=== PATIENT | male | born 1965 | race Caucasian/White ===

== ENCOUNTER 2017-10-07 07:23 | Outpatient (CLI) | payer BC ==
[2017-10-07 14:05] LABS: BASOPHILS % (AUTO) 0.7 %; EOSINOPHILS # (AUTO) 0.1 10^3/uL (0.0-0.7); EOSINOPHILS % (AUTO) 3.3 %; HGB - HEMOGLOBIN 14.8 g/dL (14.0-18.0); LYMPHOCYTES # (AUTO) 1.3 10^3/uL (1.5-3.5); LYMPHOCYTES % (AUTO) 33.6 %; MEAN CORPUSCULAR HEMOGLOBIN 31.3 pg (27.0-31.0); MEAN CORPUSCULAR HGB CONC 34.5 g/dL (32.0-36.0); MEAN CORPUSCULAR VOLUME 90.6 fL (80.0-94.0); MEAN PLATELET VOLUME 8.6 fL (7.4-11.4); MONOCYTES # (AUTO) 0.4 10^3/uL (0.0-1.0); MONOCYTES % (AUTO) 9.7 %; NEUTROPHILS # (AUTO) 2.1 10^3/uL (1.5-6.6); NEUTROPHILS % (AUTO) 52.7 %; PLT - PLATELET COUNT 211 10^3/uL (130-450); RED BLOOD COUNT 4.74 10^6/uL (4.70-6.10); RED CELL DISTRIBUTION WIDTH 13.2 % (12.0-15.0)
[2017-10-07 14:21] LABS: ALBUMIN 4.2 g/dL (3.2-5.5); ALBUMIN/GLOBULIN RATIO 1.7 (1.0-2.2); ALKALINE PHOSPHATASE 45 IU/L (42-121); ALT ALANINE AMINOTRANSFERASE 35 IU/L (10-60); AST ASPARTATE AMINOTRANSFERASE 28 IU/L (10-42); BILIRUBIN,TOTAL 1.9 mg/dL (0.2-1.0); BUN - BLOOD UREA NITROGEN 16 mg/dL (6-20); CALCIUM 8.8 mg/dL (8.5-10.3); CARBON DIOXIDE - CO2 28 mmol/L (21-32); CHLORIDE 102 mmol/L (101-111); CHOL/HDL RATIO 4.2 (<5.0); CHOLESTEROL 181 mg/dL; CREATININE 0.9 mg/dL (0.6-1.2); GFR - MDRD 89 (>89); GLUCOSE 110 mg/dL (70-100); HDL CHOLESTEROL 43 mg/dL; LDL CHOLESTEROL,CALCULATED 114 mg/dL; LDL/HDL RATIO 2.7 (<3.6); MAGNESIUM 2.2 mg/dL (1.7-2.8); SODIUM 137 mmol/L (135-145); TOTAL PROTEIN 6.7 g/dL (6.7-8.2); VLDL CHOLESTEROL 24 mg/dL
== END 2017-10-07 07:24 | disposition home or self-care (01) ==
LOC: LAB.WCP 07:23
PROVIDERS: ATTEND Family Medicine
DX: Z00.00 Encounter for general adult medical examination without abnormal findings (principal); R03.0 Elevated blood-pressure reading, without diagnosis of hypertension; K21.9 Gastro-esophageal reflux disease without esophagitis; Z12.5 Encounter for screening for malignant neoplasm of prostate
CPT/HCPCS: 36415; 80053; 80061; 83721; 83735; 84153; 84443; 85025

== ENCOUNTER 2018-02-10 08:40 | Emergency (ER) | payer BC ==
[2018-02-10 10:24] LABS: BILIRUBIN,URINE NEGATIVE (NEGATIVE); GLUCOSE, URINE (UA) NEGATIVE (NEGATIVE); KETONES,URINE (UA) NEGATIVE (NEGATIVE); LEUKOCYTE ESTERASE, URINE NEGATIVE (NEGATIVE); NITRITE,URINE NEGATIVE (NEGATIVE); OCCULT BLOOD,URINE NEGATIVE (NEGATIVE); PH,URINE 6.5 PH (5.0-7.5); PROTEIN,URINE NEGATIVE (NEGATIVE); UROBILINOGEN,URINE 0.2 (NORMAL) E.U./dL (NORMAL)
[2018-02-10 10:33] LABS: CLARITY,URINE CLEAR (CLEAR)
--- NOTE | 2018-02-10 10:40 | XRAY Report ---
Reason: pain, numbness Procedure Date: 02/10/2018 Accession Number: [id number] / [id number] Procedure: XR - Lumbar Spine 2 View CPT Code: FULL RESULT: EXAM: LUMBOSACRAL SPINE RADIOGRAPHY 3 VIEWS EXAM DATE: 02/10/2018. CLINICAL HISTORY: Pain, numbness. COMPARISONS: None. TECHNIQUE: Standing AP, lateral and coned lateral of the lumbosacral junction views. FINDINGS: Alignment: Minimal dextroconvex scoliosis centered at L2, 7 degrees. 3 mm retrolisthesis of L2 on L3. Bones: Five mfb-nes-abqwrhh lumbar vertebral bodies are present. No fractures or bone lesions. Disks: No disk narrowing and small osteophytes at L2-L3 and L3-L4. Facets: No degenerative changes visible. Sacroiliac Joints: Normal. Soft Tissues: Normal. The visualized bowel gas pattern is normal. IMPRESSION: No acute abnormality. Mild dextroconvex scoliosis. The L2-L3 and L3-L4 degenerative disk disease and spondylosis. 3 mm retrolisthesis of L2 on L3, probably secondary to degenerative disk disease. RADIA
[2018-02-10] MEDS ORDERED: HYDROcod/ACETAM 5/325 MG TABLET PO STA (14:45)
--- NOTE | 2018-02-10 14:55 | MRI Report ---
Reason: back pain with leg numbness Procedure Date: 02/10/2018 Accession Number: [id number] / [id number] Procedure: MRI - Lumbar Spine W/O CPT Code: FULL RESULT: EXAM: MRI LUMBAR SPINE WITHOUT CONTRAST EXAM DATE: 02/10/2018 02:44 PM. CLINICAL HISTORY: Back pain with leg numbness. COMPARISON: Lumbar radiograph 02/10/2018. TECHNIQUE: Multiplanar, multisequence T1-weighted and fluid-sensitive sequences of the lumbar spine from T12 to S1 without contrast. Other: None. FINDINGS: Spinal Canal: The conus terminates at L1.. The conus medullaris and cauda equina are unremarkable. Alignment: There appears to be 8 degrees of dextroconvex scoliotic curvature of the thoracolumbar junction. There is straightening of the normal lumbar lordosis. There is 2-3 mm of grade 1 anterolisthesis of L5 on S1. Bone Marrow: Five tsz-pox-cwvsycy lumbar vertebral bodies are assumed. No acute fracture seen. There are T1/T2 hyperintense lesion seen within the L3 vertebral body and within the left ilium that may represent hemangiomas. There are Modic type I and type II changes seen scattered throughout the lumbar spine that may be degenerative in nature. No definite abnormal marrow replacing lesion. Disk Levels/Facets: Mild end plate degenerative change with mild loss of disk height is seen throughout the lumbar spine. There is disk desiccation at L2-L3. T12-L1: Minimal bilateral arthritic facet disease. No spinal canal stenosis. No neuroforaminal narrowing. L1-L2: Minimal to mild bilateral arthritic facet disease. No neuroforaminal narrowing. No spinal canal stenosis. L2-L3: Small posterior disk bulge with associated annular fissure. Bilateral arthritic facet disease. Fluid is seen within the facets bilaterally. No significant spinal canal stenosis. Minimal bilateral neuroforaminal narrowing. L3-L4: Small posterior disk bulge, bilateral arthritic facet disease, and prominent epidural fat. Fluid is seen within the facets bilaterally. No spinal canal stenosis. Mild bilateral neuroforaminal narrowing, greater on the left. L4-L5: Bilateral arthritic facet disease. No spinal canal stenosis. Mild bilateral neuroforaminal narrowing, greater on the right. L5-S1: Small to moderate sized central to right paracentral disk extrusion with disk extending inferiorly behind the S1 vertebral body. Extruded disk fragment measures 12 x 9 x 8 mm (CC by TR by AP). Bilateral arthritic facet disease. Mild to moderate spinal canal stenosis and effacement of the lateral recesses with contact of the traversing S1 nerve roots and contact and mass-effect on the traversing bilateral S2 nerve roots. Mild right neuroforaminal narrowing. Musculature: Normal. No edema or fatty atrophy. Other: The partially visualized retroperitoneum is unremarkable. IMPRESSION: 1. There appears to be 8 degrees of dextroconvex scoliotic curvature of the thoracolumbar junction. 2.There is straightening of the normal lumbar lordosis. There is 2-3 mm of grade 1 anterolisthesis of L5 on S1. 3. At L5-S1 there is a small to moderate sized central to right paracentral disk extrusion with disk extending inferiorly behind the S1 vertebral body. 4. At L2-L3 there is a small posterior disk bulge with associated annular fissure. 5. Multilevel degenerative changes. L2-L3: No significant spinal canal stenosis. Minimal bilateral neuroforaminal narrowing. L3-L4: No spinal canal stenosis. Mild bilateral neuroforaminal narrowing, greater on the left. L4-L5: No spinal canal stenosis. Mild bilateral neuroforaminal narrowing, greater on the right. L5-S1: Mild to moderate spinal canal stenosis and effacement of the lateral recesses with contact of the traversing S1 nerve roots and contact and mass-effect on the traversing bilateral S2 nerve roots. Mild right neuroforaminal narrowing. Comment: The following findings are so common in adults without low back pain that while we report their presence, they must be interpreted with caution and in the context of the clinical situation. (Reference Rolfk et al, Spine 2001) Prevalence of findings in patients without low back pain: Disk degeneration (any evidence): 92% Disk desiccation/T2 signal loss: 83% Disk height loss: 56% Disk bulge: 64% Disk protrusion: 32% Annular tear/high intensity zone: 38% RADIA
--- NOTE | 2018-02-10 15:40 | ED Physician Documentation ---
PD HPI BACK PAIN - Stated complaint Stated Complaint: BACK PX/NUMBESS - Chief complaint Chief Complaint: Back Pain - History obtained from History obtained from: Patient - History of Present Illness Timing - onset: How many years ago (4) Timing - duration: Weeks (1) Timing - details: Gradual onset, Intermittant Pain level max: 10 Pain level now: 0 Location: Lower Quality: Pain, Sharp, Similar to prior episodes Associated symptoms: Numbness. No: Fever, Weakness, Incontinent of urine, Unable to urinate, Hematuria, Incontinent of stool Improves with: Nothing Worsened by: Movement Contributing factors: No: Trauma Similar symptoms before: Work up / diagnostics, Treatment, Follow up Recently seen: Not recently seen - Additional information Additional information: 52-year-old male with history of low back pain the past 4 years usually treated with physical therapy and it improves. Patient stated the past week the pain had been increasing.4 days ago he went to see his physical therapist but his pain has not improve. Patient stated he also noticed the pain is on the right side with intermittent numbness of his buttock and behind his leg and the right side of his scrotum. Patient denies any recent trauma or injury. He denies any associated fever, saddle paresthesia, incontinence of urine or stool nor hematuria. Patient was able to get an appointment with a spine surgeon at [facility] tomorrow at about 10:30 AM. However today the pain was so severe that he had difficulty getting out of bed and ambulating. He took Motrin prior to coming here. Review of Systems Ten Systems: 10 systems reviewed and negative Constitutional: denies: Fever, Myalgias GI: denies: Abdominal Pain : denies: Dysuria, Incontinent, Hematuria Musculoskeletal: reports: Back pain. denies: Neck pain, Extremity pain, Joint pain, Extremity swelling Neurologic: reports: Numbness. denies: Generalized weakness, Focal weakness PD PAST MEDICAL HISTORY - Past Medical History Past Medical History: Yes GI: GERD - Past Surgical History Past Surgical History: No - Present Medications Home Medications: Ambulatory Orders Medication Instructions Recorded Confirmed Cyclobenzaprine [Flexeril] 10 mg PO TID PRN #20 tablet 02/10/18 Hydrocodone/Acetaminophen 1 - 2 each PO Q6H PRN #14 tablet 02/10/18 [Hydrocodon-Acetaminophen 5-325] - Allergies Allergies/Adverse Reactions: Allergies Allergy/AdvReac Type Severity Reaction Status Date / Time No Known Drug Allergies Allergy Verified 02/10/18 08:54 - Social History Does the pt smoke?: No Smoking Status: Never smoker Does the pt drink ETOH?: Yes ETOH Use: Beer Does the pt have substance abuse?: No - Immunizations Immunizations are current?: Yes - POLST Patient has POLST: No PD ED PE NORMAL - Vitals Vital signs reviewed: Yes - General General: Alert and oriented X 3, No acute distress, Well developed/nourished, Other (Patient's position of comfort is standing) - HEENT HEENT: Moist mucous membranes - Neck Neck: Supple, no meningeal sign, No bony TTP - Cardiac Cardiac: RRR, No murmur - Respiratory Respiratory: No respiratory distress, Clear bilaterally - Abdomen Abdomen: Normal bowel sounds, Soft, Non tender, Non distended - Back Back: No CVA TTP, No spinal TTP - Derm Derm: Normal color, Warm and dry, No rash - Extremities Extremities: No deformity, No tenderness to palpate, Normal ROM s pain, No edema, No calf tenderness / cord - Neuro Neuro: Alert and oriented X 3, No motor deficit, No sensory deficit - Psych Psych: Normal mood, Normal affect Results - Vitals Vitals: Vital Signs - 24 hr 02/10/18 08:47 Temperature 36.5 C Heart Rate 85 Respiratory 18 Rate Blood Pressure 135/95 H O2 Saturation 100 Oxygen O2 Source Room air - Labs Labs: Laboratory Tests 02/10/18 10:20 Urine Color YELLOW Urine Clarity CLEAR Urine pH 6.5 Ur Specific [place] 1.020 Urine Protein NEGATIVE Urine Glucose (UA) NEGATIVE Urine Ketones NEGATIVE Urine Occult Blood NEGATIVE Urine Nitrite NEGATIVE Urine Bilirubin NEGATIVE Urine Urobilinogen 0.2 (NORMAL) Ur Leukocyte Esterase NEGATIVE Ur Microscopic Review NOT INDICATED Urine Culture Comments NOT INDICATED PD MEDICAL DECISION MAKING - ED course Complexity details: reviewed results, re-evaluated patient, considered differential (Lumbar strain, spinal stenosis, DJD, herniated disc,), d/w patient ED course: 1103 patient informed of x-ray results. I spoke to the performing arts technicians who stated that he is able to fit inpatient for 2 PM appointment. Patient agreed to have an MRI of his low back today. 1442 patient returned from MRI and requesting for pain medication. 1531 patient laying on his abdomen and stated the hydrocodone helped decrease the pain but the pain is still there. Patient inform of MRI results. He will be given the disc for his lumbar x-ray and his MRI. Patient stated he has an appointment with a spine doctor tomorrow at 10:30 AM and he will bring both disks to the office. He will continue with bkkb-exk-sfttesa Motrin 600 mg every 6 hours with food for pain and I will discharge him on hydrocodone and Flexeril (which had worked for him before). Departure - Departure Disposition: 01 Home, Self Care Clinical Impression: Herniated lumbar intervertebral disc, Spinal stenosis of lumbar region at multiple levels, Acute pain Condition: Stable Instructions: ED Disk Intervertebral Herniated Prescriptions: Cyclobenzaprine [Flexeril] 10 mg PO TID PRN #20 tablet PRN Reason: Spasms Hydrocodone/Acetaminophen [Hydrocodon-Acetaminophen 5-325] 1 - 2 each PO Q6H PRN #14 tablet PRN Reason: pain Comments: Keep your appointment with the emergency management program specialist tomorrow as scheduled. And bring the copies of the discs that were given to you from the emergency room. Continue to take your Motrin for pain. When taking hydrocodone And Flexeril maintain safety. Avoid constipation from narcotic pain medication by drinking lots of water, eating high-fiber foods and taking qbjj-qpl-hakilwe stool softener. If worse return to the emergency room.
[2018-02-10 15:44] VITALS: BP 136/79
== END 2018-02-10 15:52 | disposition home or self-care (01) ==
LOC: ED 08:40
DX: M51.26 Other intervertebral disc displacement, lumbar region (principal); M48.061 Spinal stenosis, lumbar region without neurogenic claudication
CPT/HCPCS: 72100; 72148; 81003; 99283; A9270; 81001; 87086

== ENCOUNTER 2018-06-23 10:11 | Day surgery (SDC) | payer BC ==
[2018-06-23] MEDS ORDERED: LACTATED RINGERS 1,000 ML IV ONE (10:21)
[2018-06-23] MEDS ORDERED: MIDAZOLAM 2 MG/2 ML VIAL IVP ONE (11:42)
[2018-06-23] MEDS ORDERED: fentaNYL 250 MCG/5 ML VIAL IVP ONE (11:42)
[2018-06-23 13:07] VITALS: BP 128/82
== END 2018-06-23 10:12 | disposition home or self-care (01) ==
LOC: SDS 10:11
PROVIDERS: ATTEND Surgery
PROC: 0DBP8ZZ Excision of Rectum, Via Natural or Artificial Opening Endoscopic (ICD-10-PCS; principal; 2018-06-23 11:30)
DX: Z12.11 Encounter for screening for malignant neoplasm of colon (principal); D12.8 Benign neoplasm of rectum; K60.2 Anal fissure, unspecified; K57.30 Diverticulosis of large intestine without perforation or abscess without bleeding; K21.9 Gastro-esophageal reflux disease without esophagitis
CPT/HCPCS: 45385; J7120

== ENCOUNTER 2021-03-15 09:02 | Outpatient (CLI) | payer BC ==
--- NOTE | 2021-03-15 10:01 | MRI Report ---
PROCEDURE: Knee RT W/O INDICATIONS: EFFUSION RIGHT KNEE TECHNIQUE: Noncontrast sagittal PD fast spin echo and T2 fast spin echo with fat saturation, sagittal 3-D gradie nt sequence with fat saturation; coronal T1 spin echo and PD fast spin echo with fat saturation, and axial PD fast spin echo with fat saturation through the knee. COMPARISON: None. Findings: Medial meniscus: Surface signal in the posterior horn, compatible meniscal tear. Minimal extrusion. Lateral meniscus: No surface communication/tear. LIGAMENTS/TENDONS: Patellar tendon: Intact. Distal quadriceps tendon: Intact. Hoffa's fat pad: No evidence of fibrosis or mass. PCL: Intact. ACL: Intact. Lateral collateral ligament complex: No significant abnormality. Posterolateral corner: No significant abnormality. Medial collateral ligament: Intact. Mildly thickened, which may reflect remote injury. MARROW: Subchondral edema of the medial compartment. Bipartite patella. No distinct fracture line. CARTILAGE: Signal heterogeneity with fissuring of the medial compartment hyaline cartilage. A 6 mm fo ken defect is seen in the medial femoral condyle hyaline cartilage. Fissuring of the trochlear hyalin e cartilage is also seen. Muscles: No significant edema or atrophy. Joint effusion/Alexandra's cyst: Small to moderate joint effusion. T2 hyperintense lesion in the poplitea l fossa, measuring 5.3 x 1.1 x 1.5 cm, most consistent with a Alexandra's cyst. Subcutaneous soft tissues: Confluent T2 hyperintense signal is seen in the superficial fascia of the medial and lateral gastrocnemius. Prepatellar soft tissue edema. IMPRESSION: 1. Posterior horn, medial meniscal tear. 2. Small to moderate joint effusion and Alexandra's cyst as detailed above. 3. Medial compartment osteochondral injury as detailed above. 4. Medial and lateral gastrocnemius fascia fluid, nonspecific. 5. Bipartite patella. Reviewed by: Shadi Murray MD on 03/15/2021 10:00 AM [facility] Approved by: Shadi Murray MD on 03/15/2021 10:00 AM PST Station ID: [id number]
== END 2021-03-15 09:03 | disposition home or self-care (01) ==
LOC: DI 09:02
PROVIDERS: ATTEND Physician Assistant Surgical
DX: M17.11 Unilateral primary osteoarthritis, right knee (principal); S83.241A Other tear of medial meniscus, current injury, right knee, initial encounter; M25.461 Effusion, right knee; M71.21 Synovial cyst of popliteal space [Baker], right knee; M94.261 Chondromalacia, right knee; R93.6 Abnormal findings on diagnostic imaging of limbs

== ENCOUNTER 2022-03-07 07:16 | Outpatient (CLI) | payer BC ==
[2022-03-07 07:52] LABS: BASOPHILS % (AUTO) 0.6 %; EOSINOPHILS # (AUTO) 0.2 10^3/uL (0.0-0.7); EOSINOPHILS % (AUTO) 2.8 %; HCT - HEMATOCRIT 45.5 % (42.0-52.0); HGB - HEMOGLOBIN 15.3 g/dL (14.0-18.0); LYMPHOCYTES # (AUTO) 1.3 10^3/uL (1.5-3.5); MEAN CORPUSCULAR HEMOGLOBIN 29.9 pg (27.0-31.0); MEAN CORPUSCULAR HGB CONC 33.6 g/dL (32.0-36.0); MEAN PLATELET VOLUME 9.6 fL (7.4-11.4); MONOCYTES # (AUTO) 0.7 10^3/uL (0.0-1.0); MONOCYTES % (AUTO) 12.3 %; NEUTROPHILS # (AUTO) 3.2 10^3/uL (1.5-6.6); NEUTROPHILS % (AUTO) 59.1 %; PLT - PLATELET COUNT 203 10^3/uL (130-450); RED BLOOD COUNT 5.11 10^6/uL (4.70-6.10); WHITE BLOOD COUNT 5.4 x10^3/uL (4.8-10.8)
[2022-03-07 08:05] LABS: ALBUMIN 4.1 g/dL (3.2-5.5); ALBUMIN/GLOBULIN RATIO 1.4 (1.0-2.2); ALKALINE PHOSPHATASE 48 IU/L (42-121); ALT ALANINE AMINOTRANSFERASE 36 IU/L (10-60); AST ASPARTATE AMINOTRANSFERASE 27 IU/L (10-42); BILIRUBIN,TOTAL 1.4 mg/dL (0.2-1.0); BUN - BLOOD UREA NITROGEN 24 mg/dL (6-20); CALCIUM 8.8 mg/dL (8.5-10.3); CARBON DIOXIDE - CO2 26 mmol/L (21-32); CHLORIDE 101 mmol/L (101-111); CHOL/HDL RATIO 3.7 (<5.0); CHOLESTEROL 147 mg/dL; GFR - MDRD 77 (>89); GLUCOSE 98 mg/dL (70-100); HDL CHOLESTEROL 40 mg/dL; LDL CHOLESTEROL,CALCULATED 90 mg/dL; LDL/HDL RATIO 2.3 (<3.6); POTASSIUM 4.1 mmol/L (3.5-5.0); SODIUM 135 mmol/L (135-145); TOTAL PROTEIN 7.1 g/dL (6.7-8.2); TRIGLYCERIDES 83 mg/dL; VLDL CHOLESTEROL 17 mg/dL
[2022-03-07 08:15] LABS: THYROID STIMULATING HORMONE 1.75 uIU/mL (0.34-5.60)
== END 2022-03-07 07:17 | disposition home or self-care (01) ==
LOC: LAB 07:16
PROVIDERS: ATTEND Family Medicine
DX: K21.9 Gastro-esophageal reflux disease without esophagitis (principal); Z12.5 Encounter for screening for malignant neoplasm of prostate
CPT/HCPCS: 36415; 80053; 80061; 83721; 84153; 84443; 85025

== ENCOUNTER 2023-05-08 07:52 | Outpatient (CLI) | payer BC ==
[2023-05-08 08:04] LABS: BASOPHILS % (AUTO) 0.4 %; EOSINOPHILS # (AUTO) 0.2 10^3/uL (0.0-0.7); EOSINOPHILS % (AUTO) 3.6 %; HCT - HEMATOCRIT 46.6 % (42.0-52.0); HGB - HEMOGLOBIN 15.5 g/dL (14.0-18.0); LYMPHOCYTES # (AUTO) 1.3 10^3/uL (1.5-3.5); LYMPHOCYTES % (AUTO) 28.2 %; MEAN CORPUSCULAR HEMOGLOBIN 30.2 pg (27.0-31.0); MEAN CORPUSCULAR HGB CONC 33.3 g/dL (32.0-36.0); MEAN CORPUSCULAR VOLUME 90.7 fL (80.0-94.0); MEAN PLATELET VOLUME 8.9 fL (7.4-11.4); MONOCYTES # (AUTO) 0.5 10^3/uL (0.0-1.0); MONOCYTES % (AUTO) 10.2 %; NEUTROPHILS # (AUTO) 2.7 10^3/uL (1.5-6.6); NEUTROPHILS % (AUTO) 57.4 %; PLT - PLATELET COUNT 205 10^3/uL (130-450); RED BLOOD COUNT 5.14 10^6/uL (4.70-6.10); RED CELL DISTRIBUTION WIDTH 12.3 % (12.0-15.0); WHITE BLOOD COUNT 4.7 x10^3/uL (4.8-10.8)
[2023-05-08 08:34] LABS: THYROID STIMULATING HORMONE 1.78 uIU/mL (0.34-5.60)
[2023-05-08 08:54] LABS: ALBUMIN 4.4 g/dL (3.2-5.5); ALBUMIN/GLOBULIN RATIO 2.1 (1.0-2.2); ALKALINE PHOSPHATASE 39 IU/L (42-121); ALT ALANINE AMINOTRANSFERASE 29 IU/L (10-60); AST ASPARTATE AMINOTRANSFERASE 22 IU/L (10-42); BILIRUBIN,TOTAL 1.6 mg/dL (0.2-1.0); BUN - BLOOD UREA NITROGEN 19 mg/dL (6-20); CALCIUM 9.5 mg/dL (8.5-10.3); CARBON DIOXIDE - CO2 31 mmol/L (21-32); CHLORIDE 103 mmol/L (101-111); CHOLESTEROL 187 mg/dL; GFR - MDRD 77 (>89); GLUCOSE 103 mg/dL (74-104); HDL CHOLESTEROL 47 mg/dL; LDL CHOLESTEROL,CALCULATED 114 mg/dL; LDL/HDL RATIO 2.4 (<3.6); POTASSIUM 4.2 mmol/L (3.5-4.5); SODIUM 138 mmol/L (135-145); TOTAL PROTEIN 6.5 g/dL (6.4-8.9); TRIGLYCERIDES 131 mg/dL (48-352); VLDL CHOLESTEROL 26 mg/dL
== END 2023-05-08 07:53 | disposition home or self-care (01) ==
LOC: LAB 07:52
PROVIDERS: ATTEND Family Medicine
DX: D12.6 Benign neoplasm of colon, unspecified (principal); Z12.5 Encounter for screening for malignant neoplasm of prostate; K21.9 Gastro-esophageal reflux disease without esophagitis
CPT/HCPCS: 36415; 80053; 80061; 83721; 84153; 84443; 85025